=== PATIENT | male | born 1965 | race Caucasian/White ===

== ENCOUNTER 2017-06-29 16:22 | Emergency (ER) | END 2017-06-29 17:12 | disposition home or self-care (01) ==

== ENCOUNTER 2017-06-30 18:46 | Emergency (ER) | END 2017-07-01 00:40 | disposition home or self-care (01) ==

== ENCOUNTER 2017-07-04 19:51 | Emergency (ER) | END 2017-07-04 23:30 | disposition left against medical advice (07) ==